=== PATIENT | male | born 1995 | race Caucasian/White ===

== ENCOUNTER 2021-10-12 18:49 | Emergency (ER) | payer SELFPAY ==
[2021-10-12 21:33] LABS: C. TRACHOMATIS BY PCR NOT DETECTED; N. GONORRHOEAE BY PCR NOT DETECTED
[2021-10-12] MEDS ORDERED: Ketorolac 30 MG/ML SDV IM STA (22:12)
== END 2021-10-12 22:59 | disposition home or self-care (01) ==
LOC: MW.ED 18:49
DX: N50.811 Right testicular pain (principal); N50.812 Left testicular pain
CPT/HCPCS: 76870; 81003; 87491; 87591; 93976; 96372; 99284; J1885; 99283